=== PATIENT | male | born 1970 | race Caucasian/White ===

== ENCOUNTER 2016-08-10 08:54 | Emergency (ER) | payer SELFPAY ==
[~2016-08-10] VITALS: Ht 180.3 cm; Wt 81.6 kg
[2016-08-10] MEDS ORDERED: PREDNISONE50 MG PO (09:30)
== END 2016-08-10 09:42 | disposition home or self-care (01) ==
LOC: ED 08:54
DX: S46.912A Strain of unspecified muscle, fascia and tendon at shoulder and upper arm level, left arm, initial encounter (principal); X58.XXXA Exposure to other specified factors, initial encounter; Y93.9 Activity, unspecified; Y92.9 Unspecified place or not applicable; Y99.9 Unspecified external cause status

== ENCOUNTER 2016-09-24 20:43 | Emergency (ER) | payer OTHER ==
[~2016-09-24] VITALS: Ht 180.3 cm; Wt 81.6 kg
[~2016-09-24 20:43] MED LIST: PREDNISONE50 MG PO
== END 2016-09-24 23:23 | disposition home or self-care (01) ==
LOC: ED 20:43
DX: S16.1XXA Strain of muscle, fascia and tendon at neck level, initial encounter (principal); S00.81XA Abrasion of other part of head, initial encounter; V49.9XXA Car occupant (driver) (passenger) injured in unspecified traffic accident, initial encounter; Y93.89 Activity, other specified; Y92.413 State road as the place of occurrence of the external cause; Y99.9 Unspecified external cause status

== ENCOUNTER 2017-01-22 11:29 | Emergency (ER) | payer SELFPAY ==
[2017-01-22 11:53] LABS: BASO % 0.4 % (0.0-1.0); EOS % 0.2 % (1.0-4.0); HEMATOCRIT 46.9 % (42.0-52.0); HEMOGLOBIN 16.1 g/dl (14.0-18.0); LYMPH # 1.4 10*3/uL (1.3-4.4); LYMPH % 14.8 % (27.0-41.0); MEAN CELL VOLUME 90.4 fl (80.0-94.0); MEAN CORPUSCULAR HGB CONC 34.3 g/dl (33.0-37.0); MEAN PLATELET VOLUME 9.6 fl (9.6-12.3); MONO # 0.5 10*3/uL (0.1-1.0); NEUT # 7.4 10*3/uL (2.3-7.9); PLATELET COUNT AUTOMATED 264 10*3/uL (130-400); RED BLOOD COUNT 5.19 10*6/uL (4.50-5.90); RED CELL DISTRI WIDTH 12.4 % (0-14.5); WHITE BLOOD COUNT 9.4 10*3/uL (4.8-10.8)
[2017-01-22 12:03] LABS: BILIRUBIN NEGATIVE (NEGATIVE); BLOOD 3+ (NEGATIVE); CLARITY CLEAR (CLEAR); COLOR YELLOW (YELLOW); GLUCOSE NEGATIVE (NEGATIVE); KETONE TRACE (NEGATIVE); LEUKO ESTERASE NEGATIVE (NEGATIVE); NITRITE NEGATIVE (NEGATIVE); SPECIFIC GRAVITY 1.025 (1.005-1.030); UROBILINOGEN 0.2 E.U./dl (0.2-1.0)
[2017-01-22 12:08] LABS: BACTERIA TRACE; EPITHELIAL CELLS 0-2; MUCOUS 1+; RBC 41-50 rbc/hpf (0-2)
[2017-01-22 12:09] LABS: ALBUMIN 4.5 gm/dl (3.1-4.5); ALKALINE PHOSPHATASE 67 U/L (45-117); BUN 13 mg/dl (7-24); CHLORIDE 104 mmol/L (98-107); CREATININE 1.16 mg/dL (0.70-1.30); POTASSIUM 4.1 mmol/L (3.5-5.1); SGOT/AST 21 IU/L (3-35); SGPT/ALT 28 U/L (12-78); SODIUM 138 mmol/L (136-145); TOTAL PROTEIN 7.9 gm/dL (6.4-8.2)
[2017-01-22] MEDS ORDERED: FLOMAX0.4 MG PO (14:03)
[2017-01-22] MEDS ORDERED: ZOFRAN4 MG PO (14:03)
[2017-01-22] MEDS ORDERED: PERCOCET 5-3251 EACH PO (14:03)
== END 2017-01-22 14:58 | disposition home or self-care (01) ==
LOC: ED 11:29
PROVIDERS: Nurse Practitioner Family
DX: N20.0 Calculus of kidney (principal); N13.39 Other hydronephrosis; I10 Essential (primary) hypertension

== ENCOUNTER 2017-02-02 08:37 | Emergency (ER) | payer SELFPAY ==
[~2017-02-02] VITALS: Ht 180.3 cm; Wt 81.6 kg
[~2017-02-02 08:37] MED LIST changes: +FLOMAX0.4 MG PO; +PERCOCET 5-3251 EACH PO; +ZOFRAN4 MG PO
[2017-02-02 09:06] LABS: BASO % 0.2 % (0.0-1.0); EOS % 0.2 % (1.0-4.0); HEMATOCRIT 45.5 % (42.0-52.0); LYMPH # 1.3 10*3/uL (1.3-4.4); LYMPH % 9.8 % (27.0-41.0); MEAN CELL VOLUME 88.2 fl (80.0-94.0); MEAN CORPUSCULAR HGB CONC 35.2 g/dl (33.0-37.0); MEAN PLATELET VOLUME 9.3 fl (9.6-12.3); MONO # 0.8 10*3/uL (0.1-1.0); MONO % 5.8 % (3.0-9.0); NEUT % 83.5 % (47.0-73.0); PLATELET COUNT AUTOMATED 269 10*3/uL (130-400); RED BLOOD COUNT 5.16 10*6/uL (4.50-5.90); RED CELL DISTRI WIDTH 12.4 % (0-14.5); WHITE BLOOD COUNT 13.2 10*3/uL (4.8-10.8)
[2017-02-02 09:21] LABS: CREATININE 1.65 mg/dL (0.70-1.30); POTASSIUM 3.6 mmol/L (3.5-5.1)
[2017-02-02 11:48] LABS: BILIRUBIN NEGATIVE (NEGATIVE); BLOOD 2+ (NEGATIVE); CLARITY CLEAR (CLEAR); COLOR YELLOW (YELLOW); GLUCOSE NEGATIVE (NEGATIVE); KETONE 1+ (NEGATIVE); LEUKO ESTERASE NEGATIVE (NEGATIVE); NITRITE NEGATIVE (NEGATIVE); PH 5.5 (5.0-9.0); UROBILINOGEN 0.2 E.U./dl (0.2-1.0)
[2017-02-02] MEDS ORDERED: Percocet 325 MG1 TAB PO (11:55)
[2017-02-02] MEDS ORDERED: Motrin,Rufen800 MG PO (11:55)
[2017-02-02 12:00] LABS: BACTERIA TRACE; RBC 31-40 rbc/hpf (0-2); WBC 0-2 wbc/hpf (0-5)
[2017-02-02] MEDS ORDERED: FLOMAX0.4 MG PO (12:27)
== END 2017-02-02 13:09 | disposition home or self-care (01) ==
LOC: ED 08:37
PROVIDERS: Emergency Medicine; Physician Assistant
DX: N23 Unspecified renal colic (principal); N20.1 Calculus of ureter

== ENCOUNTER 2020-09-26 04:52 | Emergency (ER) | payer SELFPAY ==
[~2020-09-26 04:52] MED LIST changes: +Motrin,Rufen800 MG PO; +Percocet 325 MG1 TAB PO
[2020-09-26 05:57] LABS: BILIRUBIN Negative (Negative); BLOOD Trace-Lysed (Negative); CLARITY Clear (Clear); COLOR Yellow (Yellow); GLUCOSE Negative (Negative); KETONE Negative (Negative); LEUKO ESTERASE Negative (Negative); NITRITE Negative (Negative); PH 5.5 (4.5-8.0); SPECIFIC GRAVITY >= 1.030 (1.001-1.030)
[2020-09-26 06:11] LABS: URIC ACID CRYSTALS 1+; WBC 0-2 wbc/hpf (0-5)
[2020-09-26] MEDS ORDERED: IBU800 MG PO (08:04)
== END 2020-09-26 08:20 | disposition home or self-care (01) ==
LOC: ED 04:52
PROVIDERS: Internal Medicine
DX: N20.0 Calculus of kidney (principal); Z79.899 Other long term (current) drug therapy

== ENCOUNTER 2023-10-28 15:19 | Emergency (ER) | payer OTHER ==
[~2023-10-28] VITALS: Ht 180.3 cm; Wt 86.2 kg
[~2023-10-28 15:19] MED LIST changes: +IBU800 MG PO
[2023-10-28] MEDS ORDERED: Ketorolac Tromethamine 60 MG/2 ML VIAL IM ONE (16:25)
[2023-10-28] MEDS ORDERED: CYCLOBENZAPRINE10 MG PO (18:11)
== END 2023-10-28 18:28 | disposition home or self-care (01) ==
LOC: ED 15:19
DX: M50.123 Cervical disc disorder at C6-C7 level with radiculopathy (principal); M25.512 Pain in left shoulder